=== PATIENT | female | born 2000 | race Caucasian/White ===

== ENCOUNTER 2021-02-14 20:25 | Emergency (ER) | payer OTHER ==
[~2021-02-14] VITALS: Ht 177.8 cm; Wt 61.4 kg
[2021-02-14 20:32] VITALS: BP 109/69
== END 2021-02-14 23:45 | disposition home or self-care (01) ==
LOC: ER 20:26
DX: S90.32XA Contusion of left foot, initial encounter (principal); W22.8XXA Striking against or struck by other objects, initial encounter; Y93.89 Activity, other specified; Y92.89 Other specified places as the place of occurrence of the external cause; Y99.8 Other external cause status
CPT/HCPCS: 29515; 73630; 99283

== ENCOUNTER 2021-11-01 21:02 | Emergency (ER) | payer SELFPAY ==
[~2021-11-01] VITALS: Ht 177.8 cm; Wt 65.9 kg
[2021-11-01 21:05] VITALS: BP 106/66
== END 2021-11-02 01:34 | disposition left against medical advice (07) ==
LOC: ER 21:03
DX: R06.5 Mouth breathing (principal); Z53.21 Procedure and treatment not carried out due to patient leaving prior to being seen by health care provider